=== PATIENT | female | born 1990 | race African-American/Black ===

== ENCOUNTER 2021-06-15 10:35 | Outpatient (REF) | payer OTHER, SELFPAY ==
--- NOTE | ~2021-06-15 | US_ITS ---
EXAMINATION: US DIAGNOSTIC BREAST LIMITED, LEFT CLINICAL INFORMATION: Left breast mobile mass deep superior aspect. COMPARISON: Mammography of same day. TECHNIQUE: Ultrasound of the breast is performed with real-time pereira-scale imaging and color Doppler. FINDINGS: In the region of palpable abnormality, there is a normal-appearing lymph node seen with normal fatty hilum and no evidence of cortical thickening or lobulation. There is no solid mass, architectural abnormality, duct ectasia, or edema in the soft tissue planes. Results are discussed with the patient at time of visit. US/US breast LT limited IMPRESSION: Left breast palpable abnormality corresponds to a normal lymph node. ASSESSMENT: BI-RADS 1: Negative. RECOMMENDATION: Routine annual screening mammography at 40 years of age.
--- NOTE | ~2021-06-15 | MM_ITS ---
EXAMINATION: MM DIAGNOSTIC DIGITAL BREAST TOMOSYNTHESIS, BILATERAL US TARGETED BREAST ULTRASOUND, LEFT CLINICAL INFORMATION: Palpable abnormality deep superior left breast. The lifetime risk of breast cancer based on the Tyrer-Cuzick Model is 15.6%. COMPARISON: Mammography: None TECHNIQUE: Digital breast tomosynthesis is performed in both the craniocaudal and mediolateral oblique views along with computer-aided detection (CAD). Synthesized 2-D images are generated from the tomosynthesis. Left breast exaggerated craniocaudal view performed. Targeted left breast ultrasound. FINDINGS: The breasts are extremely dense, which lowers the sensitivity of mammography (ACR BI-RADS breast composition Category d). There is a large amount of dense nodular breast parenchyma present with no definite region of architectural distortion or suspicious grouping of calcifications identified. Targeted left breast ultrasound demonstrates in the region of palpable abnormality a normal-appearing lymph node without cortical thickening or lobulation. Results are discussed with the patient at time of visit. MM/MM tomosynthesis diagnostic BI IMPRESSION: Extremely dense breast tissue. Palpable abnormality corresponds to a normal lymph node. ASSESSMENT: BI-RADS 1: Negative. RECOMMENDATION: Routine screening mammography at 40 years of age.
== END 2021-06-15 10:36 | disposition home or self-care (01) ==
LOC: HO.MAMMO 10:35
PROVIDERS: Visit Provider Advanced Practice Midwife
DX: N63.21 Unspecified lump in the left breast, upper outer quadrant (principal)
CPT/HCPCS: 76642; 77062; 77066

== ENCOUNTER 2023-06-27 08:41 | Outpatient (REF) | payer OTHER, SELFPAY ==
[2023-06-27 14:06] LABS: Hematocrit 35.5 % (37.0-47.0); Hemoglobin 11.1 g/dl (12.0-16.0); Mean Corpuscular HGB Conc 31.3 g/dl (31.0-35.0); Mean Corpuscular Hemoglobin 24.8 pg (27.0-33.0); Mean Corpuscular Volume 79.2 fL (80.0-98.0); Mean Platelet Volume 12.1 fL (9.4-12.3); Platelet Count 241 X10*3/uL (160-400); Red Blood Count 4.48 X10*6/uL (4.20-5.50); Red Cell Distribution Width 15.1 % (11.0-16.0); White Blood Count 7.1 X10*3/uL (4.8-10.8)
[2023-06-27 14:26] LABS: Alanine Aminotransferase 20 U/L (0-31); Alkaline Phosphatase 50 U/L (39-117); Anion Gap 13 (12-20); Aspartate Amino Transferase 26 U/L (5-31); Bilirubin Total 0.3 mg/dL (0.0-1.0); Blood Urea Nitrogen 6 mg/dL (9-16); Calcium 9.7 mg/dL (8.4-10.2); Carbon Dioxide 23 mmol/L (22-29); Chloride 107 mmol/L (96-108); Estimated Glomerular Filt Rate > 60; Glucose Random 76 mg/dL (60-115); Potassium 3.9 mmol/L (3.3-5.1); Sodium 139 mmol/L (135-145); Total Protein 7.8 g/dL (6.5-8.0)
[2023-06-27 14:45] LABS: TSH reflex Free T4 0.67 uIU/mL (0.32-4.0)
== END 2023-06-27 08:42 | disposition home or self-care (01) ==
LOC: HO.CHCLDS 08:41
PROVIDERS: Visit Provider Internal Medicine
DX: Z00.00 Encounter for general adult medical examination without abnormal findings (principal); D50.9 Iron deficiency anemia, unspecified; J30.89 Other allergic rhinitis; R63.5 Abnormal weight gain; H92.01 Otalgia, right ear
CPT/HCPCS: 36415; 80053; 84443; 85027

== ENCOUNTER 2024-08-18 10:07 | Outpatient (REF) | payer OTHER, SELFPAY ==
--- OUTSIDE RECORDS SUMMARY | 2024-08-18 11:03 | XMS_ITS | Encounter Summary ---
Author Organization [employer] Address [address] [place] [address] [address] [place] [address] Care Team Providers Care Health Aid Name Role Phone Verónica Dave MD Primary Care Provider [phone] Reason for Visit * Reason Comments Pre-visit Planning SDOH unable to reach LVM Encounter Details Date Type Department Care Team ([facility] st Contact Info) Description 08/11/2024 Patient Outreach [facility] [address] [place], [place] [phone] Verónica Dave MD [address] [place] [address] Pre-visit Planning (SDOH unable to reach LVM) Social History Tobacco Use Types Packs/Day Years Used Date Smoking Tobacco: Never Smokeless Tobacco: Never Alcohol Use Standard Drinks/Week Comments Never 0 (1 standard drink = 0.6 oz pur e alcohol) Depression Answer Date Recorded Patient Health Questionnaire-9 Score 3 03/07/2024 Patient Health Questionnaire-9 Score 3 03/07/2024 Last PHQ-9: Questionnaire Data Not on file 0 03/07/2024 Housing Stability Answer Date Recorded What is your housing situation today? I have yee currie 06/18/[address] you li ve. Do you have problems with any of the following? None of the above 06/18/2023 Food Insecurity Answer Date Recorded Within the past 12 months, y ou worried that your food would run out before you got money to buy more: Never True 06/18/2023 Within the past 12 months,th e food you bought just didn't last and you didn't have enough money to get more: Never True 05/2023 Transportation Answer Date Recorded In the past 12 months, has l ack of transportation kept you from medical appts, meetings, work or from getting things needed for daily living? No 06/18/2023 Utilities Answer Date Recorded In the past 12 months, has t he electric, gas, oil or water company threatened to shut off services in your home? No 06/18/2023 Depression Answer Date Recorded Patient Health Questionnaire-2 Score 2 03/07/2024 Comments Unknown Sex and Gender Information Value Date Recorded Sex Assigned at Female 05/08/2022 10:22 AM EDT Legal Sex Female 10:22 AM EDT Gender Identity Female 05/08/2022 10:22 AM EDT Sexual Orientation Bisexual 06/18/2023 4: 23 PM EST Sexual Orientation Straight 06/18/2023 4: 23 PM EST documented as of this encounter Progress Notes * Leeanna Friedman - 08/11/2024 4:24 PM EST ROMULO Singh placed outbound call to patient to complete pre-visit planning. No answer at this time. Patient name and were not confirmed. CC left voicemail requesting return call. Direct contactinformation provided. documented in this encounter Plan of Treatment Not on file documented as of this encounter Visit Diagnoses Not on filedocumented in this encounter Additional Health Concerns Assessment Noted Time PHQ-9 Depression Total Score: 3 03/07/20 24 10:03 AM EDT documented as of this encounter Care Teams Health Aid Relationship Specialty Start Date End Date Verónica Dave MD [address] [place] [address] PCP - General Internal Medicine 03/07/12 documented as of this encounter
--- OUTSIDE RECORDS SUMMARY | 2024-08-18 11:03 | XMS_ITS | Clinical Summary ---
Author Organization [employer] Address [address] [place] [address] [address] [place] [address] Care Team Providers Care Siebel Architect Name Role Phone Verónica Dave MD Primary Care Provider [phone] Allergies No known active allergies Medications fluticasone (Flonase) 50 MCG/ACT nasal sprayIndicatio ns:Seasonal allergic rhinitis due to other allergic trigger Administer 1-2 sprays into each nostril Once per day. Shake gently. Before first use, prime pump. After use, clean tip and replace cap. 16 g 11 02/28/20 24 025 Active loratadine (Claritin) 10 MG tabletIndicati ons:Other allergic rhinitis TAKE 1 TABLET BY MOUTH EVERY DAY 90 tablet 3 08/18/19 25 Active Neomycin-Polym yxin-HC 1 % solutionIndica tions:Right ear pain Administer 4 drops into affected ear(s) 4 times daily. 10 mL 06/25/20 23 025 Discontinued(Th erapy completed) ferrous gluconate (Fergon) 324 (38 Fe) MG tabletIndicati ons:Microcytic anemia TAKE 1 TABLET (324 MG) BY MOUTH WITH BREAKFAST. 90 tablet 09/24/19 24 025 Discontinued loratadine (Claritin) 10 MG tabletIndicati ons:Other allergic rhinitis TAKE 1 TABLET BY MOUTH EVERY DAY 90 tablet 3 05/26/20 24 025 Discontinued(Re order (will not trigger notification to Pharmacy)) Active Problems Problem Noted Date Diagnosed Date Mild depression 03/07/2024 Iritis 02/29/2024 Chondritis of external ear, left 02/28/2024 Assessment & Plan (02/28/2024 6:25 PM EDT): Pt w close to 2 weeks of left ear pinna swelling ,pain and inc skin temp , pt thinks she may have an insect bite triggering this but is not sure Seems most likely infectious chondritis VS are wnl -Start doxycycline 100 mg BID + levaquin 500 mg daily for 7 days -tylenol ,NSAIDS PRN advised -f w me in 7 days to monitor , if no improvement may need to consider non infectious causes as autoimmune , relapsing polychondritis so to start rheumatologic workup ,but denies px hx of this so seems unlikely -alarm signs and symptoms discussed Microcytic anemia 06/25/2023 06/25/2023 Seasonal allergic rhinitis 10/15/201306/25 Other atopic dermatitis and related conditions 0 03/07/2012 06/25/2023 Encounters Date Type Department Care Team Description 08/18/2024 9:30 AM EST Office Visit [facility] [address] [place] [address] Verónica Dave MD Annual physical exam (Primary Dx); Other allergic rhinitis 08/18/2024 Travel 08/14/2024 Telephone [facility] [address] [place] [address] Yecenia Mendez MA chart prep 08/14/2024 Telephone [facility] [address] [place] [address] Yecenia Mendez MA chart prep 08/11/2024 Patient Outreach [facility] [address] [place] [address] Verónica Dave MD Pre-visit Planning ([facility] unable to reach [facility]) 08/11/2024 Travel 06/13/2024 Telephone [facility] [address] [place] [address] Verónica Dave MD recall appt 05/25/2024 Refill [facility] [address] [place] [address] Verónica Dave MD Other allergic rhinitis from Last 3 Months Immunizations Name Administration Dates Next Due DTP 07/14/1994, 3,02/10/1992,1990,1990,1990 Hep B, Unspecified 03/11/1996,08/13/1995, 996 HiB, unspecified 04/23/1992, 1,1990,1990 Influenza injectable quadriv alent preservative free 05/24/2021 Influenza, Split (incl. zohra fied surface antigen) 03/07/2012 MMR 01/01/1996,02/20/1992 OPV 07/14/1994, 3,02/10/1992,1990,1990,1990 TD (adult), 2 Lf tetanus tox oid, preservative free, adsorbed 03/02/2003 Tdap 10/06/2016 Varicella 11/25/1997,11/06/1997 Family History Medical History Relation Name Comments Alcohol abuse Father Liver cirrhosis Father Cervical cancer Maternal Grandmother Hypertension Mother Hypertension Sister Relation Name Status Comments Father Maternal Grandmother Mother Sister Social History Tobacco Use Types Packs/Day Years Used Date Smoking Tobacco: Never Smokeless Tobacco: Never Tobacco Cessation:Counseling Given: Not Answered Alcohol Use Standard Drinks/Week Comments Never 0 (1 standard drink = 0.6 oz pur e alcohol) Depression Answer Date Recorded Patient Health Questionnaire-9 Score 2 08/18/2024 Patient Health Questionnaire-9 Score 2 08/18/2024 Last PHQ-9: Questionnaire Data Not on file 0 08/18/2024 Housing Stability Answer Date Recorded What is your housing situation today? I have yee currie 08/18/[address] you li ve. Do you have problems with any of the following? None of the above 08/18/2024 Food Insecurity Answer Date Recorded Within the past 12 months, y ou worried that your food would run out before you got money to buy more: Never True 08/18/2024 Within the past 12 months,th e food you bought just didn't last and you didn't have enough money to get more: Never True 04/2025 Transportation Answer Date Recorded In the past 12 months, has l ack of transportation kept you from medical appts, meetings, work or from getting things needed for daily living? No 08/18/2024 Utilities Answer Date Recorded In the past 12 months, has t he electric, gas, oil or water company threatened to shut off services in your home? No 06/18/2023 Depression Answer Date Recorded Patient Health Questionnaire-2 Score 0 08/18/2024 Internet Access Answer Date Recorded Internet Access Q1 Yes 08/18/2024 Internet Access Q2 Not on file 08/18/2024 Comments Unknown Sex and Gender Information Value Date Recorded Sex Assigned at Female 05/08/2022 10:22 AM EDT Legal Sex Female 10:22 AM EDT Gender Identity Female 05/08/2022 10:22 AM EDT Sexual Orientation Bisexual 06/18/2023 4: 23 PM EST Sexual Orientation Straight 06/18/2023 4: 23 PM EST Last Filed Vital Signs Vital Sign Reading Time Taken Comments Blood Pressure 120/84 08/18/2024 9:23 AM EST Pulse 80 08/18/2024 9:23 AM EST Temperature 36.7 ??C (98 ??F) 08/18/2024 9:23 AM EST Respiratory Rate 20 08/18/2024 9:23 AM EST Oxygen Saturation 98% 08/18/2024 9:23 AM EST Inhaled Oxygen Concentration - - Weight 78.9 kg (174 lb) 08/18/2024 9:23 AM EST Height 167.6 cm (5' 6 ) 08/18/2024 9:23 AM EST Body Mass Index 28.08 08/18/2024 9:23 AM EST Plan of Treatment Health Maintenance Due Date Last Done Comments HIV Screening 1990 Family Planning (PISQ) 2005 Hepatitis C Screening 2008 COVID-19 Vaccine ( season) 2024 04/13/2021, 03/23/2021 Influenza Vaccine (#1) 2024 05/24/2021, 2011 Pap Smear 05/24/2024 05/24/2021 SDOH Screening 06/18/2024 06/18/2023 Alcohol/Substance Use Screening 08/18/2025 08/18/2024 Depression Screening 08/18/2025 08/18/2024, 08/18/19 25 Tobacco Screening 08/18/2025 08/18/2024 Cervical Cancer Screening 05/24/2026 HPV/Cotest 05/24/2026 05/24/2021 DTaP/Tdap/Td Vaccines (7 - Td or Tdap) 10/06/2026 10/06/2016, 03/02/2003, 07/14/1994, Additional history exists Zoster Vaccines (1 of 2) 2040 RSV Patients and Patients Aged 60 years or older (1 - 1-dose 75+ series) 2065 HIB Vaccines Completed 04/23/1992, 08/1990, 1990, Additional history exists IPV Vaccines Completed 07/14/1994, 12/1992, 02/10/1992, Additional history exists Hepatitis B Vaccines Completed 03/11/1996, 08/13/1995, 07/12/1995 HPV Vaccines Aged Out No longer eligi ble based on patient's age to complete this topic Hepatitis A Vaccines Aged Out No long er eligible based on patient's age to complete this topic Meningococcal Vaccine Aged Out No ruth rickie eligible based on patient's age to complete this topic Pneumococcal Vaccine: Pediatrics (0 to 5 Years) and At-Risk Patients (6 to 49) Years) Aged Out No longer eligible based on patient's age to complete this topic RSV under 20 months Aged Out No longe r eligible based on patient's age to complete this topic Rotavirus Vaccines Aged Out No longer eligible based on patient's age to complete this topic Procedures Procedure Name Priority Date/Time Associated Diagnosis Comments THINPREP IMAGING PAP AND HPV MRNA E6/E7 WITH REFLEX TO HPV 16,18/45 Routine 05/24/2021 11:15 AM EST from Last 3 Months or Most Recently Relevant to Health Maintenance Results * THINPREP TIS PAP AND HPV mRNA E6/E7 REFLEX HPV 16,18/45 (05/24/2021 11:15 AM EST) Clinical Information: None given [facility] COMMENT SEE COMMENT [facility] Comment: EXPLANATORY NOTE: ? The Pap is a screening test for cervical cancer. It is ?? not a diagnostic test and is subject to false negative ?? and false positive results. It is most reliable when a ?? satisfactory sample, regularly obtained, is submitted ?? with relevant clinical findings and history, and when ?? the Pap result is evaluated along with historic and ?? current clinical information. ?? COMMENT: This Pap test has been evaluated with computer assisted technology. [facility] Golf Tournament Consultant: SEE COMMENT [facility] Comment: [place], CT(ASCP) CT screening location: [address] ??[address] HPV nRNA E6/E7 Not Detected Not Detected [facility] Comment: Methodology: Cremator-Mediated Amplification This assay detects E6/E7 viral messenger RNA (mRNA) from 14 high-risk HPV types (16,18,31,33,35,39,45,51,52,56,58,59,66,68). ? The analytical performance characteristics of this assay have been determined by [employer]. The modifications have not been cleared or approved by the FDA. This assay has been validated pursuant to the CLIA regulations and is used for clinical purposes. ?? For additional information, please refer to http://education.BeFunky/faq/QFT913r5 (This link if provided for information/ educational purposes only.) Interpretation/Re sult: Negative for intraepithelial lesion or malignancy. [facility] LMP: 111,321 [facility] Prev. BX: NONE [facility]IVEN [facility] Prev. PAP: NONE [facility]IVEN [facility] SOURCE: None given [facility] Statement Of Adequacy: SEE COMMENT [facility] Comment: Satisfactory for evaluation. Endocervical/transformation zone component present. 05/24/2021 11:1 5 AM EST us Rosa Christie CNM LAB PATHOLOGY ORDERABLES Final Result [facility] [address] from Last 3 Months or Most Recently Relevant to Health Maintenance Insurance [facility] , [address] [place] [id number] CATERINA LIND01 Care Teams Siebel Architect Relationship Specialty Start Date End Date Verónica Dave MD [address] [place] [address] CATERINA Rodas [id number] PCP - General Internal Medicine 03/07/12
--- OUTSIDE RECORDS SUMMARY | 2024-08-18 11:03 | XMS_ITS | Encounter Summary ---
Author Organization [employer] Address [address] [facility] 7t [place] [address] Care Team Providers Care Washateria Attendant Name Role Phone Verónica Dave MD Primary Care Provider [phone] Encounter Details Date Type Department Care Team (Latest Contact Info) Description 08/11/2024 Travel Social History Tobacco Use Types Packs/Day Years [...] PM EST documented as of this encounter Plan of Treatment Not on file documented as of this encounter Visit Diagnoses Not on filedocumented in this encounter Additional Health Concerns Assessment Noted Time PHQ-9 Depression Total Score: 3 03/07/20 24 10:03 AM EDT documented as of this encounter Care Teams Washateria Attendant Relationship Specialty Start Date End Date Verónica Dave MD [address] [place] [id number] PCP - General Internal Medicine 03/07/12 documented as of this encounter
--- OUTSIDE RECORDS SUMMARY | 2024-08-18 11:03 | XMS_ITS | Data Portability ---
Author Organization [place] - [facility], Allergy Address [address] [address] Care Team Providers Care Anchor Tack Puller Name Role Phone EFRAÍN PAZ Primary Care Provider [phone] Assessment Encounter Date Assessment Date Assessment LastModified by Organization Details LastModified Time 07/23/2024 07/23/2024 34-year-old femcharly srivastava presents for evaluation of intermittent drainage from the right ear. Symptom is not active today. Patient has history of eczema. Reviewed pathophysiology of transformation of eczema to otitis externa and the rationale for Q-tip avoidance and dry ear precautions, and we reviewed best ways to achieve this. Will work in patient for evaluation when otorrhea is active. Physical exam and history suggestive of Eustachian tube dysfunction. Reviewed pathophysiology of Eustachian tube dysfunction on diagram and patient/parent understands. Recommend trial of intranasal steroid spray; risks, rationale, and crossed-hand application technique reviewed and all questions were answered. [email or web address] Not available 07/23/2024 11:02:30 Plan of Treatment Reminders Order Date Submit Date Provider Last Modified By Organization Details Last Modified Time Details Appointments None recorded. Lab None recorded. Referral None recorded. Procedures None recorded. Surgeries None recorded. Imaging None recorded. Medication Orders fluticason e propionate 50 mcg/actuat ion nasal spray,susp ension 2024 025 [id number], [address] [place], [address], 16:17:44 Patient TargetsNo targets recorded. Patient InstructionsNo instructions recorded. Reason for Referral None Reported. Problems Name Problem SNOMED Code Status Onset Date Resolution Date Notes Provider Name and Address Organization Details Recorded Time Chronic eczema of external auditory canal 917117131 Active [address],[place] [address], [place], [address], [facility] 11:00:30 Bilateral disorder of Eustachian tubes 3072477054889 107 Active 2024 CAMP[address]Vannessa DOSHI [address],[place] [address], [place], [address], [facility] 11:00:38 Allergic rhinitis 01499091 Active [address],[place] [address], [place], [phone], [facility] 11:00:43 Problem Notes None recorded. Medical Equipment None Reported. Allergies No known drug allergies Medications Name Sig Start Date Stop Date Status Note LastModified by Organization Details LastModified Time ibuprofen 800 mg tablet TAKE 1 TABLET EVERY 8 HOURS BY MOUTH NEEDED FOR PAIN 07/23 completed Not Available Not Available Not Available amoxicillin 500 mg tablet TAKE 1 TABLET BY MOUTH 4 TIMES A DAY UNTIL GONE 07/23 completed Not Available Not Available Not Available ibuprofen 600 mg tablet TAKE 1 TABLET (600 MG) BY MOUTH EVERY 8 (EIGHT) HOURS IF NEEDED FOR MILD PAIN FOR UP TO 5 DAYS. active Not Available Not Available No t Available levofloxaci n 500 mg tablet TAKE 1 TABLET (500 MG) BY MOUTH ONCE PER DAY FOR 7 DAYS. 07/23 completed Not Available Not Available Not Available levofloxaci n 750 mg tablet TAKE 1 TABLET (750 MG) BY MOUTH ONCE PER DAY FOR 7 DAYS. 07/23 completed Not Available Not Available Not Available fluticasone propionate 50 mcg/actuati on nasal spray,suspe nsion Oakes 2 sprays every day by intranasa l route in the morning for 30 days. active Not Available Not Available No t Available doxycycline hyclate 100 mg tablet PLEASE SEE ATTACHED FOR DETAILED DIRECTION S 07/23 completed Not Available Not Available Not Available loratadine 10 mg tablet TAKE 1 TABLET BY MOUTH EVERY DAY IN THE MORNING * OTC NC BY INS* active Not Available Not Available No t Available Vitals Date Recorded Body height Body weight Provider Name and Address Organization Details Last Updated DateTime 07/23/2024 170.18 cm 90757.7 g Kaitlynn Valle [place] - [facility] 07/23/2024 10:10:30 Social History None recorded. Functional Status None recorded. Mental Status None recorded. Family History Nothing Reported. Medical History Condition Response Allergies/Hayfever N Heart Problems N Anxiety Y Tonsil Infections N Emphysema N Migraines N Thyroid Problems N Glaucoma N Depression N COPD N Developmental Delay N Nasal or Sinus Problems Y Anemia Y Immune System Disorder N Anesthesia Complications N Heart Attack (OR) N Other Skin Condition N Diabetes N Rhinitis N Bleeding Disorder N Food Allergy N Arthritis N Hearing Loss N Hyperlipidemia N Cancer N Stroke N Dementia N Nasal polyps N Asthma N High Cholesterol N Sleep Disorder N GERD/Reflux N Liver Disease N Headaches N Fibromyalgia N Hypertension N Speech Delay N Kidney Disease N Gynecological HistoryNo gynecological history recorded. Obstetrics History GPAL:G 0 P 0 0 0 0 Past Encounters Encounter ID Performer Location Encounter Start Date Encounter Closed Date Diagnosis/Indication Diagnosis SNOMED-CT Code Diagnosis ICD10 Code Diagnosis Note [id number] CAMPOS DOSHI PA-C [facility] [address] [address] 07/23/2024 09:50:22 07/23/2024 10:44:44 Chronic eczema of external auditory canal 811456825 H60.8X9 Bilateral disorder of Eustachian tubes 7832232180 022825 H69.93 Allergic rhinitis 624781 04 J30.9 Health Concerns Section Related Observation LastModified by Organization Detai ls LastModified Time None Recorded Concern Status LastModified by Organization Details LastModified Time None Recorded Advance Directives Directive None Recorded Payers Encounter Date Sequence Insurance Name Policy Number Policy Bird Covered Member ID Bird Member ID Guarantor Name 07/23/2024 1 [facility] [id number] 1 Rafaela Bhakta [id number] Rafaela Bhakta Notes Date Note Type Note Provider Name and Address Organization Details Recorded Time 07/23/2024 text/html 34 year old paxton srivastava presents for evaluation. Was referred several months ago for ear pain, but that has resolved since making the appointment. She now reports the right ear has been chronically draining. Feels like swimmer's ear. Drainage scabs over. Ears feel full, sometimes improved with autoinsufflation or chewing gum. Worse during allergy season. Hearing seems fine. There are no fevers. History of eczema. CAMPOS DOSHI PA-C [address] [place] [address], [phone], [facility] - [facility] 07/23/2024 11:02:43 OBGyn Episode No OBEpisode recorded.
--- OUTSIDE RECORDS SUMMARY | 2024-08-18 11:03 | XMS_ITS | Encounter Summary ---
Author Organization [employer] Address [address] [place] [address] [address] [place] [address] Care Team Providers Care Paid Search Manager Name Role Phone Verónica Dave MD Primary Care Provider [phone] Reason for Visit * Reason Comments Annual Exam Encounter Details Date Type Department Care Team ([facility] Contact Info) Description 08/18/2024 9:30 AM EST Office Visit [facility] MED & PEDS [address] [place], [place] [phone] Verónica Dave MD [address] [place] [address] Annual physical exam (Primary Dx); Other allergic rhinitis Social History Tobacco Use Types Packs/Day Years [...] PM EST documented as of this encounter Last Filed Vital Signs Vital Sign Reading [...] Mass Index 28.08 08/18/2024 9:23 AM EST documented in this encounter Progress Notes * Verónica Dave MD - 08/18/2024 9:30 AM EST Subjective Patient ID: Rafaela Bhakta is a 34 y.o. female who presents for Annual Exam. HPI Patient is here for her annual physical. She denies any acute events since the last office visit. Feels overall well. Needs a refill on her loratadine. She is interested in getting . Patient Active Problem List Diagnosis Microcytic anemia Other atopic dermatitis and related conditions Seasonal allergic rhinitis Chondritis of external ear, left Iritis Mild depression Current Outpatient Medications on File Prior to Visit Medication Sig Dispense Refill ferrous gluconate (Fergon) 324 (38 Fe) MG tablet TAKE 1 TABLET (324 MG) BY MOUTH WITH BREAKFAST. 90tablet 0 fluticasone (Flonase) 50 MCG/ACT nasal spray Administer 1-2 sprays into each nostril Once per day. Shake gently. Before first use, prime pump. After use, clean tip and replace cap. 16 g 11 Tkwtpbpn-Wwajdajnh-JW 1 % solution Administer 4 drops into affected ear(s) 4 times daily. 10 mL 0 [DISCONTINUED] loratadine (Claritin) 10 MG tablet TAKE 1 TABLET BY MOUTH EVERY DAY 90 tablet 3 No current facility-administered medications on file prior to visit. Review of Systems Constitutional: Negative for activity change, appetite change, chills and diaphoresis. HENT: Negative for dental problem, drooling, ear discharge, ear pain and hearing loss. Eyes: Negative for pain, discharge and itching. Respiratory: Negative for cough, choking and chest tightness. Cardiovascular: Negative for chest pain and leg swelling. Gastrointestinal: Negative for blood in stool and diarrhea. Genitourinary: Negative for difficulty urinating, dyspareunia, dysuria, enuresis, flank pain, frequency and genital sores. Musculoskeletal: Negative for arthralgias, gait problem and joint swelling. Skin: Negative for pallor. Neurological: Negative for dizziness, seizures, speech difficulty, light- headedness and numbness. Psychiatric/Behavioral: Negative for behavioral problems, confusion and decreased concentration. Objective BP 120/84 (BP Location: Left arm, Patient Position: Sitting, BP Cuff Size: Adult) Pulse 80 Temp98 ??F (36.7 ??C) (Oral) Resp 20 Ht 5' 6 (1.676 m) Wt 174 lb (78.9 kg) SpO2 98% BMI 28.08 kg/m?? Physical Exam Constitutional: General: She is not in acute distress. Appearance: Normal appearance. She is not ill-appearing, toxic-appearing or diaphoretic. HENT: Head: Normocephalic. Right Ear: Tympanic membrane normal. There is no impacted cerumen. Left Ear: Tympanic membrane normal. There is no impacted cerumen. Nose: Nose normal. No congestion or rhinorrhea. Mouth/Throat: Mouth: Mucous membranes are moist. Eyes: General: No scleral icterus. Right eye: No discharge. Left eye: No discharge. Pupils: Pupils are equal, round, and reactive to light. Cardiovascular: Rate and Rhythm: Normal rate and regular rhythm. Heart sounds: No murmur heard. No friction rub. No gallop. Pulmonary: Effort: Pulmonary effort is normal. No respiratory distress. Breath sounds: No stridor. No wheezing, rhonchi or rales. Chest: Chest wall: No tenderness. Abdominal: General: There is no distension. Palpations: Abdomen is soft. There is no mass. Tenderness: There is no abdominal tenderness. There is no right CVA tenderness or left CVA tenderness. Musculoskeletal: General: Normal range of motion. Cervical back: Normal range of motion. Neurological: General: No focal deficit present. Mental Status: She is alert and oriented to person, place, and time. Psychiatric: Mood and Affect: Mood normal. Assessment/Plan Diagnoses and all orders for this visit: Annual physical exam Comments: Normal exam Patient is to maintain a healthy and balanced diet Advised to seek help from the fertility clinic Orders: - CBC auto differential; Future - Comprehensive Metabolic Panel; Future - Lipid Panel, Standard; Future - HIV-1/2 Antigen and Antibodies, Fourth Generation, with Reflexes; Future - Hepatitis C Viral RNA, Quantitative, Real-Time PCR; Future - Chlamydia/N. Gonorrhoeae RNA, TMA, Urogenitial - TSH W/Reflex to FT4; Future - Syphilis Screen; Future Other allergic rhinitis Comments: Avoid any identified trigger Continue with loratadine 10 mg once a day Orders: - loratadine (Claritin) 10 MG tablet; TAKE 1 TABLET BY MOUTH EVERY DAY documented in this encounter Plan of Treatment Scheduled Orders Name Type Priority Associated Diagnoses Orde r Schedule CBC auto differential Lab Routine Annual physical exam Expected: 08/18/2024 (Approximate), Expires: 08/18/2025 Comprehensive Metabolic Panel Lab Routine Annual physical exam Expected: 08/18/2024 (Approximate), Expires: 08/18/2025 Lipid Panel, Standard Lab Routine Annual physical exam Expected: 08/18/2024 (Approximate), Expires: 08/18/2025 HIV-1/2 Antigen and Antibodies, Fourth Generation, with Reflexes Lab Routine Annual physical exam Expected: 08/18/2024 (Approximate), Expires: 08/18/2025 Hepatitis C Viral RNA, Quantitative, Real-Time PCR Lab Routine Annual physical exam Expected: 08/18/2024 (Approximate), Expires: 08/18/2025 Chlamydia/N. Gonorrhoeae RNA, TMA, Urogenitial Microbiology Routine Annual physical exam Ordered: 08/18/2024 TSH W/Reflex to FT4 Lab Routine Annual physical exam Expected: 08/18/2024 (Approximate), Expires: 08/18/2025 Syphilis Screen Lab Routine Annual physical exam Expected: 08/18/2024, Expires: 08/18/2025 documented as of this encounter Visit Diagnoses Diagnosis Annual physical exam- Primary Routine general medical examination at a health care facility Other allergic rhinitis documented in this encounter Additional Health Concerns Assessment Noted Time PHQ-9 Depression Total Score: 2 08/18/19 25 9:32 AM EST documented as of this encounter Care Teams Paid Search Manager Relationship Specialty Start Date End Date Verónica Dave MD [address] [place] [address] PCP - General Internal Medicine 03/07/12 documented as of this encounter
--- OUTSIDE RECORDS SUMMARY | 2024-08-18 11:03 | XMS_ITS | Encounter Summary ---
Author Organization [employer] Address [address] [facility] 7[address] [place] [address] Care Team Providers Care Corporate Lawyer Name Role Phone Verónica Dave MD Primary Care Provider [phone] Encounter Details Date Type Department Care Team ([facility] st Contact Info) Description 06/29/2023 Orders Only [facility] MED & PEDS [address] [place], [place] [phone] Verónica Dave MD [address] [place] [address] Seasonal allergic rhinitis due to other allergic trigger (Primary Dx) Social History Tobacco Use Types Packs/Day Years Used Date Smoking Tobacco: Never Smokeless Tobacco: Never Alcohol Use Standard Drinks/Week Comments Never 0 (1 standard drink = 0.6 oz pur e alcohol) Housing Stability Answer Date Recorded What is your housing situation today? I have yeeyasmeen currie 06/18/[address] you [...] off services in your home? No 06/18/2023 Comments Unknown Sex and Gender Information Value [...] as of this encounter Visit Diagnoses Diagnosis Seasonal allergic rhinitis due to other allergic trigger- Primary documented in this encounter Care Teams Corporate Lawyer Relationship Specialty Start Date End Date Verónica Dave MD [address] [place] [address] PCP - General Internal Medicine 03/07/12 documented as of this encounter
--- OUTSIDE RECORDS SUMMARY | 2024-08-18 11:03 | XMS_ITS | Encounter Summary ---
Author Organization [employer] Address [address] [facility] 7t [place] [address] Care Team Providers Care Genomics Scientist Name Role Phone Verónica Dave MD Primary Care Provider [phone] Reason for Visit * Reason Onset Date Comments chart prep 08/14/2024 Encounter Details Date Type Department Care Team ([facility] st Contact Info) Description 08/14/2024 Telephone [facility] CH[facility] MED & PEDS [address] [place] [address] Yecenia Mendez MA chart prep Social History Tobacco Use Types Packs/Day Years [...] documented as of this encounter Care Teams Genomics Scientist Relationship Specialty Start Date End Date Verónica Dave MD [address] [place] [address] PCP - General Internal Medicine 03/07/12 documented as of this encounter
--- OUTSIDE RECORDS SUMMARY | 2024-08-18 11:03 | XMS_ITS | Clinical Summary ---
Author Organization [facility] it Address [address] [place] [address] Care Team Providers Care Freight Car Repairer Name Role Phone Unavailable Primary Care Provider Unavailabl e Social History Tobacco Use Types Packs/Day Years Used Date Smoking Tobacco: Never Assessed Comments Unknown Sex and Gender Information Value Date Recorded Sex Assigned at Not on file Legal Sex Female 2:20 PM EST Gender Identity Not on file Sexual Orientation Not on file Plan of Treatment Health Maintenance Due Date Last Done Comments DTaP,Tdap,and Td Vaccines (1 - Tdap) 1997 Hepatitis B Vaccines (1 of 3 - 19+ 3-dose series) 2009 Cervical Cancer Screening: P ap Smear 2011 Depression Screening 06/07/2022 HIV Screening 06/07/2022 Hepatitis C Screening 06/07/2022 Social Influencers of Health Screening 06/07/2022 COVID-19 Vaccine (2023-2 5 season) 2024 Influenza Vaccine (#1) 2024 HIB Vaccines Aged Out No longer eligi ble based on patient's age to complete this topic HPV Vaccines Aged Out No longer eligi ble based on patient's age to complete this topic Hepatitis A Vaccines Aged Out No long er eligible based on patient's age to complete this topic IPV Vaccines Aged Out No longer eligi ble based on patient's age to complete this topic MMR Vaccines Aged Out No longer eligi ble based on patient's age to complete this topic Meningococcal ACWY Vaccine Aged Out N o longer eligible based on patient's age to complete this topic Meningococcal B Vacine Aged Out No lo nger eligible based on patient's age to complete this topic Pneumococcal Vaccine: Pediat rics (0 to 5 Years) and At-Risk Patients (6 to 64 Years) Aged Out No longer eligible b ased on patient's age to complete this topic RSV Immunization Patients Un sanjay 20 months Aged Out No longer eligible b ased on patient's age to complete this topic Varicella Vaccines Aged Out No longer eligible based on patient's age to complete this topic
--- OUTSIDE RECORDS SUMMARY | 2024-08-18 11:03 | XMS_ITS | Encounter Summary ---
Author Organization [employer] Address [address] [facility] 7t [place] [address] Care Team Providers Care Welt Wheeler Name Role Phone Verónica Dave MD Primary Care Provider [phone] Reason for Visit * Reason Onset Date Comments chart prep 08/14/2024 Encounter Details Date Type Department Care Team ([facility] st Contact Info) Description 08/14/2024 Telephone [facility] CH[facility] MED & PEDS [address] [place] [address] Yecenia Mendez MA chart prep Social History [...] PM EST documented as of this encounter Miscellaneous Notes * Telephone Encounter - Yecenia Mendez MA - 08/14/2024 11:01 AM EST Chart Prep Labs: none Images: none Vaccines due: yes Referrals: pending appt Screenings: none Overdue care gaps: Sbirt, SDOH documented in this encounter Plan of Treatment Not on file documented as of this encounter Visit Diagnoses Not on filedocumented in this encounter Additional Health Concerns Assessment Noted Time PHQ-9 Depression Total Score: 3 03/07/20 24 10:03 AM EDT documented as of this encounter Care Teams Welt Wheeler Relationship Specialty Start Date End Date Verónica Dave MD [address] [place] [address] PCP - General Internal Medicine 03/07/12 documented as of this encounter
--- OUTSIDE RECORDS SUMMARY | 2024-08-18 11:03 | XMS_ITS | Continuity of Care Document ---
Author Organization [place] [facility], [facility] Address [address] [place] [address] Care Team Providers Care Weekend Caregiver Name Role Phone EFRAÍN PAZ Primary Care Provider Assessment Encounter Date Assessment Date Assessment LastModified [...] nasal spray,susp ension 2024 025 [id number], [address] [place], [address], 16:17:44 Patient TargetsNo targets recorded. Patient InstructionsNo instructions recorded. Reason for Referral None Reported. Problems Name Problem SNOMED Code Status Onset Date Resolution Date Notes Provider Name and Address Organization Details Recorded Time Chronic eczema of external auditory canal 459953684 Active [address],[place] [address], [place], [address], [facility] 11:00:30 Bilateral disorder of Eustachian tubes 6849404499175 107 Active [address],[place] [address], [place], [address], [facility] 11:00:38 Allergic rhinitis 85991432 Active [address],[place] [address], [place], [address], [facility] 11:00:43 Problem Notes None recorded. Medical Equipment [...] propionate 50 mcg/actuati on nasal spray,suspe nsion [place] 2 sprays every day by intranasa l [...] Details Last Updated DateTime 07/23/2024 170.18 cm 39707.7 g Kaitlynn Valle [place] - [facility] 07/23/2024 10:10:30 Social History None recorded. Functional [...] Disorder N Anesthesia Complications N Heart Attack ([place]) N Other Skin Condition N Diabetes N Rhinitis N Bleeding Disorder N Food Allergy N Arthritis N Hearing Loss N Hyperlipidemia N Cancer N Stroke N Dementia N Nasal polyps N Asthma N Sleep Disorder N GERD/Reflux N High Cholesterol N Liver Disease N Headaches N Fibromyalgia N Hypertension N Speech Delay N Kidney Disease N Gynecological HistoryNo gynecological history recorded. Obstetrics History GPAL:G 0 P 0 0 0 0 Past Encounters Encounter ID Performer Location Encounter Start Date Encounter Closed Date Diagnosis/Indication Diagnosis SNOMED-CT Code Diagnosis ICD10 Code Diagnosis Note [id number] CAMPOS DOSHI PA-C [facility] [address] [address] 07/23/2024 09:50:22 07/23/2024 10:44:44 Chronic eczema of external auditory canal 889577665 H60.8X9 Bilateral disorder of Eustachian tubes 2315460437 493046 H69.93 Allergic rhinitis 218184 04 J30.9 Health Concerns Section Related Observation LastModified by Organization Detai ls LastModified Time None Recorded Concern Status LastModified by Organization Details LastModified Time None Recorded Payers Encounter Date Sequence Insurance Name Policy Number Policy Bird Covered Member ID Bird Member ID Guarantor Name 07/23/2024 1 [facility] [id number] 1 Rafaela Bhakta [id number] Rafaela Bhakta Notes Date Note Type Note [...] fevers. History of eczema. CAMPOS DOSHI PA-C [address] [place] [address], [phone], [facility] - [facility] 07/23/2024 11:02:43 OBGyn Episode No OBEpisode recorded.
--- OUTSIDE RECORDS SUMMARY | 2024-08-18 11:03 | XMS_ITS | Encounter Summary ---
Author Organization [employer] Address [address] [facility] 7[address] [place] [address] Care Team Providers Care Spud Driller Name Role Phone Verónica Dave MD Primary Care Provider [phone] Encounter Details Date Type Department Care Team (Latest Contact Info) Description 08/18/2024 Travel Social History Tobacco Use Types Packs/Day [...] documented as of this encounter Care Teams Spud Driller Relationship Specialty Start Date End Date Verónica Dave MD [address] [place] [address] PCP - General Internal Medicine 03/07/12 documented as of this encounter
[2024-08-18 14:04] LABS: MANUAL DIFF FLAG NO
[2024-08-18 14:08] LABS: Basophils Percent Auto 0.5 % (0-2); Eosinophils Absolute Auto 0.2 X10*3/uL (0.0-0.4); Eosinophils Percent Auto 4.2 % (0-4); Hematocrit 35.5 % (37.0-47.0); Hemoglobin 11.3 g/dl (12.0-16.0); Imm Gran Abs Auto 0.01 X10*3/uL (0.00-0.03); Imm Gran Pct Auto 0.2 % (0.0-0.4); Lymphocytes Absolute Auto 2.1 X10*3/uL (1.2-4.9); Lymphocytes Percent Auto 37.6 % (20-40); Mean Corpuscular HGB Conc 31.8 g/dl (31.0-35.0); Mean Corpuscular Hemoglobin 26.2 pg (27.0-33.0); Mean Corpuscular Volume 82.2 fL (80.0-98.0); Mean Platelet Volume 12.4 fL (9.4-12.3); Monocytes Absolute Auto 0.5 X10*3/uL (0.1-1.2); Monocytes Percent Auto 7.9 % (2-11); Neutrophils Absolute Auto 2.8 x10*3/uL (2.0-8.3); Neutrophils Percent Auto 49.6 % (45-73); Platelet Count 259 X10*3/uL (160-400); Red Blood Count 4.32 X10*6/uL (4.20-5.50); Red Cell Distribution Width 14.5 % (11.0-16.0); White Blood Count 5.7 X10*3/uL (4.8-10.8)
[2024-08-18 14:37] LABS: Alanine Aminotransferase 22 U/L (0-31); Albumin Level 3.9 g/dL (3.5-5.0); Alkaline Phosphatase 62 U/L (39-117); Anion Gap 8 (12-20); Aspartate Amino Transferase 28 U/L (5-31); Bilirubin Total 0.2 mg/dL (0.0-1.0); Blood Urea Nitrogen 8 mg/dL (9-16); Calcium 9.4 mg/dL (8.4-10.2); Carbon Dioxide 24 mmol/L (22-29); Chloride 111 mmol/L (96-108); Cholesterol 160 mg/dL (<200); Estimated Glomerular Filt Rate > 60; Glucose Random 82 mg/dL (60-115); HDL Cholesterol 71 mg/dL (>40); LDL Cholesterol Calculated 82 mg/dL (<100); Potassium 3.9 mmol/L (3.3-5.1); Sodium 139 mmol/L (135-145); Total Protein 7.9 g/dL (6.5-8.0); Triglycerides 38 mg/dL (<150)
[2024-08-18 14:42] LABS: HIV AB/AG Nonreactive (Nonreactive); HIV Num 1 0.06 S/CO (0.00-0.99)
[2024-08-18 14:44] LABS: Syphilis Screen Nonreactive (Nonreactive)
[2024-08-19 22:54] LABS: HCV Log PCR <1.18 NOT DETECTED Log IU/mL (NOT DETECTED); HepC Viral Load <15 NOT DETECTED IU/mL (NOT DETECTED)
== END 2024-08-18 10:08 | disposition home or self-care (01) ==
LOC: HO.CHCLDS 10:07
PROVIDERS: Visit Provider Internal Medicine
DX: Z00.00 Encounter for general adult medical examination without abnormal findings (principal)
CPT/HCPCS: 36415; 80053; 80061; 84443; 85025; 86780; 87389; 87522